=== PATIENT | male | born 1995 | race American Indian/Alaskan Native ===

== ENCOUNTER 2018-11-05 07:09 | Emergency (ER) | payer OTHER ==
[2018-11-05 07:18] VITALS: BP 119/76
[2018-11-05] MEDS ORDERED: TORADOL IM ONE (08:27)
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
== END 2018-11-05 08:51 | disposition home or self-care (01) ==
LOC: ED 07:09
DX: M54.2 Cervicalgia (principal)
CPT/HCPCS: 96372; 99282; J1885

== ENCOUNTER 2019-05-05 03:05 | Emergency (ER) | payer SELFPAY ==
[2019-05-05] MEDS ORDERED: IBUPROFEN PO ONE (05:27)
[2019-05-05] MEDS ORDERED: TYLENOL PO ONE (05:27)
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
[2019-05-05 07:07] VITALS: BP 124/76
== END 2019-05-05 07:06 | disposition home or self-care (01) ==
LOC: ED 03:05
DX: S83.92XA Sprain of unspecified site of left knee, initial encounter (principal); M62.830 Muscle spasm of back; V89.2XXA Person injured in unspecified motor-vehicle accident, traffic, initial encounter; Y93.89 Activity, other specified; Y92.89 Other specified places as the place of occurrence of the external cause; Y99.8 Other external cause status
CPT/HCPCS: 72040; 72100

== ENCOUNTER 2019-07-07 04:14 | Emergency (ER) | payer SELFPAY ==
[2019-07-07] MEDS ORDERED: BICILLIN L-A IM ONE (05:09)
[2019-07-07] MEDS ORDERED: TORADOL IM ONE (05:09)
[2019-07-07] MEDS ORDERED: DECADRON IM ONE (05:09)
[2019-07-07] MEDS ORDERED: LIDOCAINE VISCOUS 2% PO ONE (05:09)
--- NOTE | 2019-07-07 06:10 | Emergency Department Report ---
ED General Adult HPI - General Chief complaint: Sore Throat Stated complaint: THROAT PAIN Source: patient Mode of arrival: Ambulatory Limitations: No Limitations - History of Present Illness Initial comments: Patient is a 24-year-old -Thai male with no past medical history presents to the ED, no acute onset persistent nasal and sinus congestion, dry cough with severe sore throat and dysphagia for the last 3 days. Patient states that the symptoms are worsen in the last 12 hours that he is not been able to swallow anything because of severe pain. Patient denies dysphonia, dyspnea, wheezing, fever, chills, nausea, vomiting, diarrhea, abdominal pain, dizziness, headache, swollen lips or tongue or change in vision or neck pain. MD Complaint: Sore throat; dysphagia -: Sudden, days(s) (3) Location: mouth, chest Radiation: non-radiation Severity scale (0 -10): 7 Quality: burning, aching, sharp Consistency: constant Improves with: none Worsens with: none Associated Symptoms: denies other symptoms, cough, fever/chills, loss of appetite. denies: confusion, chest pain, diaphoresis, headaches, malaise, nausea/vomiting, rash, seizure, shortness of breath, syncope, weakness Treatments Prior to Arrival: none - Related Data Previous Rx's Medication Instructions Recorded Last Taken Type Cyclobenzaprine [Flexeril] 10 mg PO TID PRN #20 tablet 11/05/18 Unknown Rx Ibuprofen 800 mg PO QID 5 Days #20 tablet 11/05/18 Unknown Rx Cyclobenzaprine [Flexeril] 10 mg PO TID PRN #21 tablet 05/05/19 Unknown Rx Azithromycin [Zithromax Z-GISELA] 250 mg PO DAILY #6 tablet 07/07/19 Unknown Rx Benzonatate [Tessalon Perles] 100 mg PO Q8HR #30 capsule 07/07/19 Unknown Rx Ibuprofen [Motrin 800 MG tab] 800 mg PO Q8HR PRN #20 tablet 07/07/19 Unknown Rx Lidocaine Viscous 2% 10 ml PO Q6H PRN #120 ml 07/07/19 Unknown Rx methylPREDNISolone [Medrol 4MG 4 mg PO DAILY #21 tab.ds.pk 07/07/19 Unknown Rx DOSEPAK (21 tabs)] Allergies Allergy/AdvReac Type Severity Reaction Status Date / Time No Known Allergies Allergy Unverified 11/05/18 07:16 ED Review of Systems ROS: Stated complaint: THROAT PAIN Other details as noted in HPI Constitutional: denies: chills, fever Eyes: denies: eye pain, eye discharge, vision change ENT: throat pain, congestion. denies: ear pain Respiratory: cough. denies: shortness of breath, wheezing Cardiovascular: denies: chest pain, palpitations Endocrine: no symptoms reported Gastrointestinal: denies: abdominal pain, nausea, diarrhea Genitourinary: denies: urgency, dysuria Musculoskeletal: denies: back pain, joint swelling, arthralgia Skin: denies: rash, lesions Neurological: denies: headache, weakness, paresthesias Psychiatric: denies: anxiety, depression Hematological/Lymphatic: denies: easy bleeding, easy bruising ED Past Medical Hx - Past Medical History Previous Medical History?: Yes Additional medical history: ezcema - Surgical History Past Surgical History?: No - Social History Smoking Status: Never Smoker Substance Use Type: Alcohol - Medications Home Medications: Home Medications Medication Instructions Recorded Confirmed Last Taken Type Cyclobenzaprine [Flexeril] 10 mg PO TID PRN #20 tablet 11/05/18 Unknown Rx Ibuprofen 800 mg PO QID 5 Days #20 tablet 11/05/18 Unknown Rx Cyclobenzaprine [Flexeril] 10 mg PO TID PRN #21 tablet 05/05/19 Unknown Rx Azithromycin [Zithromax Z-GISELA] 250 mg PO DAILY #6 tablet 07/07/19 Unknown Rx Benzonatate [Tessalon Perles] 100 mg PO Q8HR #30 capsule 07/07/19 Unknown Rx Ibuprofen [Motrin 800 MG tab] 800 mg PO Q8HR PRN #20 tablet 07/07/19 Unknown Rx Lidocaine Viscous 2% 10 ml PO Q6H PRN #120 ml 07/07/19 Unknown Rx methylPREDNISolone [Medrol 4MG 4 mg PO DAILY #21 tab.ds.pk 07/07/19 Unknown Rx DOSEPAK (21 tabs)] ED Physical Exam - General Limitations: No Limitations General appearance: alert, in no apparent distress - Head Head exam: Present: atraumatic, normocephalic, normal inspection - Eye Eye exam: Present: normal appearance, PERRL, EOMI Pupils: Present: normal accommodation - ENT ENT exam: Present: mucous membranes moist, TM's normal bilaterally, normal external ear exam, other (erythematous oropharynx with swollen tonsils and exudates with no sign of peritonsillar abscess) - Neck Neck exam: Present: normal inspection, full ROM, lymphadenopathy. Absent: tenderness, meningismus, thyromegaly - Respiratory Respiratory exam: Present: normal lung sounds bilaterally. Absent: respiratory distress, wheezes, rales, stridor, chest wall tenderness, accessory muscle use, prolonged expiratory - Cardiovascular Cardiovascular Exam: Present: regular rate, normal rhythm, normal heart sounds. Absent: systolic murmur, diastolic murmur, rubs, gallop - GI/Abdominal GI/Abdominal exam: Present: soft, normal bowel sounds. Absent: tenderness, guarding, hyperactive bowel sounds, hypoactive bowel sounds, organomegaly - Rectal Rectal exam: Present: deferred - Extremities Exam Extremities exam: Present: normal inspection, full ROM, normal capillary refill - Back Exam Back exam: Present: normal inspection, full ROM. Absent: tenderness, CVA tenderness (R), CVA tenderness (L), muscle spasm, paraspinal tenderness, vertebral tenderness - Neurological Exam Neurological exam: Present: alert, oriented X3, CN II-XII intact, normal gait, reflexes normal - Psychiatric Psychiatric exam: Present: normal affect, normal mood - Skin Skin exam: Present: warm, dry, intact, normal color. Absent: rash ED Course Vital Signs 07/07/19 05:52 Respiratory 16 Rate - Reevaluation(s) Reevaluation #1: 07/07/19 06:08 This is a 24-year-old -Thai male who presents to the ED with severe sore throat, dysphagia and swollen tonsils with nasal and sinus congestion and a cough for the last 3 days. In the ED, patient is alert and oriented 3 and is not in distress. Patient was treated in the ED empirically for streptococcal pharyngitis, and was treated for pain. On reevaluation, patient's pain is well controlled with medications. Patient was then discharged home on antibiotics and pain medications and advised to follow-up with his primary care physician in 7-10 days for reevaluation. Patient is advised to return to the ED immediately if symptoms get worse. ED Medical Decision Making - Medical Decision Making This is a 24-year-old -Thai male who presents to the ED with severe sore throat, dysphagia and swollen tonsils with nasal and sinus congestion and a cough for the last 3 days. In the ED, patient is alert and oriented 3 and is not in distress. Patient was treated in the ED empirically for streptococcal pharyngitis, and was treated for pain. On reevaluation, patient's pain is well controlled with medications. Patient was then discharged home on antibiotics and pain medications and advised to follow-up with his primary care physician in 7-10 days for reevaluation. Patient is advised to return to the ED immediately if symptoms get worse. - Differential Diagnosis Strep pharyngitis; Tonsillitis; acute URI; Acute Bronchitis Critical care attestation.: If time is entered above; I have spent that time in minutes in the direct care of this critically ill patient, excluding procedure time. ED Disposition Clinical Impression: Acute bacterial tonsillitis, Acute upper respiratory infection Acute pharyngitis Qualifiers: Pharyngitis/tonsillitis etiology: other specified organisms Qualified Code(s): J02.8 - Acute pharyngitis due to other specified organisms Acute bronchitis Qualifiers: Bronchitis organism: unspecified organism Qualified Code(s): J20.9 - Acute bronchitis, unspecified Disposition: DC- TO HOME OR SELFCARE Is pt being admited?: No Does the pt Need Aspirin: No Condition: Stable Instructions: Acute Bronchitis (ED), Upper Respiratory Infection (ED), Pharyngitis (ED) Additional Instructions: Take medications with food, drink plenty of fluids and follow-up with your primary care physician in 7-10 days for reevaluation. Return to the ED immediately if symptoms get worse. Prescriptions: Lidocaine Viscous 2% 10 ml PO Q6H PRN #120 ml PRN Reason: Pain , Severe (7-10) methylPREDNISolone [Medrol 4MG DOSEPAK (21 tabs)] 4 mg PO DAILY #21 tab.ds.pk Ibuprofen [Motrin 800 MG tab] 800 mg PO Q8HR PRN #20 tablet PRN Reason: Pain , Severe (7-10) Benzonatate [Tessalon Perles] 100 mg PO Q8HR #30 capsule Azithromycin [Zithromax Z-GISELA] 250 mg PO DAILY #6 tablet Referrals: PRIMARY CARE, [Primary Care Provider] - 3-5 Days Time of Disposition: 06:12 Print Language: SERBIAN
[2019-07-07 06:40] VITALS: BP 140/88
== END 2019-07-07 06:38 | disposition home or self-care (01) ==
LOC: ED 04:14
DX: J02.8 Acute pharyngitis due to other specified organisms (principal); J03.80 Acute tonsillitis due to other specified organisms; B96.89 Other specified bacterial agents as the cause of diseases classified elsewhere; J06.9 Acute upper respiratory infection, unspecified
CPT/HCPCS: 96372; 99282; J0561; J1100; J1885